=== PATIENT | male | born 1965 | race Caucasian/White ===

== ENCOUNTER 2019-09-21 00:11 | Emergency (ER) | payer OTHER ==
[~2019-09-21] VITALS: Ht 190.5 cm; Wt 104.5 kg
[2019-09-21] MEDS ORDERED: labetalol 100mg tablet PO SCH (00:20)
[2019-09-21] MEDS ORDERED: labetalol 100mg tablet PO ONE (00:20)
[2019-09-21 00:55] VITALS: BP 163/117
== END 2019-09-21 00:57 ==
LOC: ER 00:12
DX: R03.0 Elevated blood-pressure reading, without diagnosis of hypertension (principal); F17.200 Nicotine dependence, unspecified, uncomplicated
CPT/HCPCS: 99283

== ENCOUNTER → 2021-05-31 | Emergency (ER) | payer OTHER ==
[~2021-05-31] VITALS: Ht 190.5 cm; Wt 90.0 kg
[2021-06-01 00:15] VITALS: BP 214/112
--- NOTE | 2021-06-01 01:19 | NUR ---
patient left against medical advice without nurse knowing. patient went to bathroom and never came back
--- NOTE | 2021-06-01 01:21 | NUR ---
patient was released by pd
[2021-06-01 01:34] LABS: BASOPHILS # (AUTO) 0.1 X10'3 (0-0.2); EOSINOPHILS # (AUTO) 0.1 X10'3 (0-0.9); HEMATOCRIT 41.4 % (42.0-52.0); HEMOGLOBIN 14.8 g/dl (14.0-17.9); LYMPHOCYTES # (AUTO) 1.2 X10'3 (1.1-4.8); LYMPHOCYTES % (AUTO) 23.1 % (21-51); MEAN CORPUSCULAR HGB CONC 35.7 g/dL (33.0-36.5); MEAN CORPUSCULAR VOLUME 100.7 FL (78-98); MEAN PLATELET VOLUME 8.5 FL (7.4-10.4); MONOCYTES # (AUTO) 0.4 X10'3 (0-0.9); MONOCYTES % (AUTO) 7.8 % (2-12); NEUTROPHILS # (AUTO) 3.5 X10'3 (1.8-7.7); NEUTROPHILS % (AUTO) 67.1 % (42-75); PLATELET COUNT 195 X10'3 (140-440); RED BLOOD COUNT 4.11 X10'6 (4.70-6.10); RED CELL DISTRIBUTION WIDTH 12.7 % (11.5-14.5); WHITE BLOOD COUNT 5.3 X10'3 (4.5-11.0)
[2021-06-01 01:38] LABS: ALBUMIN 4.2 G/DL (3.4-5.0); ANION GAP 17 (8-16); BLOOD UREA NITROGEN 12 MG/DL (7-18); BUN/CREATININE RATIO 12.4 (5.4-32.0); CHLORIDE 101 MMOL/L (99-107); CREATININE 0.97 MG/DL (0.60-1.10); GLUCOSE 108 MG/DL (70-104); POTASSIUM 3.3 MMOL/L (3.5-5.1); SODIUM 140 MMOL/L (135-145); TOTAL CARBON DIOXIDE 22.2 MMOL/L (24-32); eGFR 80 ML/MIN
== END | disposition home or self-care (01) ==
LOC: ER 23:35
DX: I10 Essential (primary) hypertension (principal); R00.0 Tachycardia, unspecified
CPT/HCPCS: 36415; 80048; 85025; 99283; 99284